=== PATIENT | female | born 1955 | race Caucasian/White ===

== ENCOUNTER 2018-04-09 16:34 | Outpatient (CLI) | payer OTHER | END 2018-04-09 16:50 | disposition home or self-care (01) | LOC: RAD 16:34 | DX: R07.89 Other chest pain (principal); I10 Essential (primary) hypertension ==

== ENCOUNTER 2021-07-28 13:03 | Emergency (ER) | payer OTHER ==
[~2021-07-28] VITALS: Ht 160 cm; Wt 56.7 kg
== END 2021-07-28 15:08 | disposition home or self-care (01) ==
LOC: ER 13:03
DX: S80.01XA Contusion of right knee, initial encounter (principal); S00.83XA Contusion of other part of head, initial encounter; W18.30XA Fall on same level, unspecified, initial encounter; Y92.238 Other place in hospital as the place of occurrence of the external cause; Z86.39 Personal history of other endocrine, nutritional and metabolic disease; Z86.79 Personal history of other diseases of the circulatory system